=== PATIENT | male | born 1960 | race Caucasian/White ===

== ENCOUNTER 2021-02-06 15:23 | Emergency (ER) | payer SELFPAY ==
[2021-02-06 16:50] LABS: Basophils % 0.5 % (0-1.3); Hematocrit 35.3 % (39.6-49.0); Lymphocytes % 15.3 % (15.3-44.8); MPV 7.9 fL (7.6-11.3)
[2021-02-06 16:53] LABS: Protime INR 1.57
[2021-02-06 17:05] LABS: Urine Blood Negative (Negative); Urine Glucose Trace (Negative); Urine Protein 2+ (Negative); Urine Specific Gravity 1.025 (1.005-1.030)
[2021-02-06 17:05] LABS: Blood Morphology Comment NOTED (NOT SEEN); Macrocytosis 3+; Platelet Estimate ADEQ; White Blood Cell Scan OK (OK)
[2021-02-06 17:11] LABS: ALT/SGPT 54 U/L (12-78); Albumin 2.2 g/dL (3.4-5.0); Alkaline Phosphatase 243 U/L (45-117); BUN Blood Urea Nitrogen 12 mg/dL (7-18); Bicarbonate 20 mmol/L (21-32); Bilirubin Direct 6.9 mg/dL (0-0.2); Glucose Level 80 mg/dL (74-106); Lipase 101 U/L (73-393); NT PRO-BNP 1502 pg/mL (<125); Potassium 4.9 mmol/L (3.5-5.1); Protein, Total 6.8 g/dL (6.4-8.2); Sodium Level 132 mmol/L (136-145); Troponin (Emerg Dept Use Only) < 0.02 ng/mL (0.0-0.045)
[2021-02-06 17:12] LABS: AST/SGOT 232 U/L (15-37); Magnesium 2.3 mg/dL (1.8-2.4)
[2021-02-06 17:16] LABS: Bilirubin Total 10.7 mg/dL (0.2-1.0)
[2021-02-06] MEDS ORDERED: ONDANSETRON 4 MG/2 ML VIAL ONE ×2 (17:27→20:10)
[2021-02-06] MEDS ORDERED: THIAMINE 200 MG/2 ML INJ ONE ×2 (17:27→23:03)
[2021-02-06] MEDS ORDERED: VITAMIN K (ADULT) 10 MG/ML ONE (17:37)
[2021-02-06] MEDS ORDERED: NA CHLORIDE 0.9% 1,000 ML ONE ×2 (17:37→23:05)
[2021-02-06] MEDS ORDERED: PANTOPRAZOLE 40 MG INJ ONE ×3 (17:37→20:10)
[2021-02-06 17:43] LABS: Barbiturates NEGATIVE (NEGATIVE); Benzodiazepines NEGATIVE (NEGATIVE); Cocaine NEGATIVE (NEGATIVE); METHAMPHETAM NEGATIVE (NEGATIVE); Methadone NEGATIVE (NEGATIVE); Opiates NEGATIVE (NEGATIVE); Phencyclidine NEGATIVE (NEGATIVE); THC Cannibis POSITIVE (NEGATIVE)
[2021-02-06] MEDS ORDERED: VANCOMYCIN/NS 1 gm 1 GM/250 ML BAG IVPB ONE (18:00)
[2021-02-06] MEDS ORDERED: CEFTRIAXONE/SWI 1gm 1 GM/10 ML SYR IVP ONE (18:00)
[2021-02-06] MEDS ORDERED: METHYLPREDNISOLONE 125 MG INJ ONE (18:10)
--- NOTE | 2021-02-06 18:13 | RAD REPORT ---
EXAM DESCRIPTION: Ekaterina Single View02/06/2021 5:53 pm CLINICAL HISTORY: Cough COMPARISON: none FINDINGS: Right hemidiaphragm is elevated with areas of subsegmental atelectasis within the right l charlene base. The left lung appears clear of acute infiltrate. The heart is normal size
[2021-02-06] MEDS ORDERED: LIDOCAINE 1% MPF 30 ML VIAL ONE (18:38)
[2021-02-06] MEDS ORDERED: ALBUMIN HUMAN 25% 100 ML IV ONE (19:05)
--- NOTE | 2021-02-06 19:49 | EDPHYS ---
Physician Documentation [facility] Name: Rei Waldron Age: 60 yrs Sex: Male : 1960 Arrival Date: 02/06/2021 Time: 15:28 Bed 18 Private MD: ED Physician Eduardo Pablo HPI: 02/06 16:52 This 60 yrs old Male presents to ER via Wheelchair with complaints of rekha Abdominal Swelling, Cough, Leg Swelling. 16:52 The patient or guardian reports cough, difficulty breathing. Onset: The rekha symptoms/episode began/occurred last week. Historical: - Allergies: 15:41 No Known Allergies; em - PMHx: 15:41 None; em - PSHx: 15:41 Hernia repair; em - Immunization history:: Adult Immunizations not up to date. - Social history:: Smoking status: Patient/guardian denies using tobacco, Stopped _ months ago 1. ROS: 16:52 Constitutional: Negative for fever, chills, and weight loss, Eyes: Negative for injury, rekha pain, redness, and discharge, ENT: Negative for injury, pain, and discharge, Neck: Negative for injury, pain, and swelling, Back: Negative for injury and pain, : Negative for injury, bleeding, discharge, and swelling, Neuro: Negative for headache, weakness, numbness, tingling, and seizure, Psych: Negative for depression, anxiety, suicide ideation, homicidal ideation, and hallucinations, Allergy/Immunology: Negative for hives, rash, and allergies, Endocrine: Negative for neck swelling, polydipsia, polyuria, polyphagia, and marked weight changes, Hematologic/Lymphatic: Negative for swollen nodes, abnormal bleeding, and unusual bruising. 16:52 Cardiovascular: Positive for palpitations. 16:52 Respiratory: Positive for cough, shortness of breath. 16:52 Abdomen/GI: Positive for abdominal pain, abdominal distension, of the right upper quadrant, left upper quadrant, right lower quadrant and left lower quadrant. Exam: 16:52 Head/Face: Normocephalic, atraumatic. Eyes: Pupils equal round and reactive to light, rekha extra-ocular motions intact. Lids and lashes normal. Conjunctiva and sclera are non-icteric and not injected. Cornea within normal limits. Periorbital areas with no swelling, redness, or edema. ENT: Nares patent. No nasal discharge, no septal abnormalities noted. Tympanic membranes are normal and external auditory canals are clear. Oropharynx with no redness, swelling, or masses, exudates, or evidence of obstruction, uvula midline. Mucous membranes moist. Neck: Trachea midline, no thyromegaly or masses palpated, and no cervical lymphadenopathy. Supple, full range of motion without nuchal rigidity, or vertebral point tenderness. No Meningismus. Chest/axilla: Normal chest wall appearance and motion. Nontender with no deformity. No lesions are appreciated. Back: No spinal tenderness. No costovertebral tenderness. Full range of motion. Male : Normal genitalia with no discharge or lesions. Skin: Warm, dry with normal turgor. Normal color with no rashes, no lesions, and no evidence of cellulitis. Neuro: Awake and alert, GCS 15, oriented to person, place, time, and situation. Cranial nerves II-XII grossly intact. Motor strength 5/5 in all extremities. Sensory grossly intact. Cerebellar exam normal. Normal gait. Psych: Awake, alert, with orientation to person, place and time. Behavior, mood, and affect are within normal limits. 16:52 Constitutional: The patient appears anxious, in obvious distress, mildly distressed. 16:52 Cardiovascular: Rate: tachycardic, Rhythm: regular, Heart sounds: normal, Edema: 4+ edema to level of left midcalf and right midcalf, JVD: is noted bilaterally, to 2 cm. 16:52 Respiratory: mild respiratory distress is noted, Respirations: labored breathing, that is mild, Breath sounds: bronchial sounds, decreased breath sounds, rhonchi, that are mild, Respiratory rate: 24 16:52 Abdomen/GI: Inspection: distension, that is severe, Bowel sounds: normal, Palpation: mild abdominal tenderness, in all quadrants, Liver: no appreciated palpable abnormalities, Hernia: not appreciated. Vital Signs: 15:37 BP 155 / 94; Pulse 115; Resp 24; Temp 97.8(O); Pulse Ox 94% on R/A; Weight 108.86 kg; em Height 6 ft. 2 in. (187.96 cm) (R); Pain 8/10; 19:20 BP 148 / 121; Pulse 109; Resp 22; Pulse Ox 100% on BiPAP; tr6 19:39 Temp 97.7(R); tr6 20:17 BP 135 / 74; Pulse 107; Resp 22; Pulse Ox 100% on BiPAP; jm8 21:00 BP 135 / 88; Pulse 105; Resp 20; Pulse Ox 99% on BiPAP; jm8 22:00 BP 112 / 65; Pulse 107; Resp 16; Pulse Ox 95% on 3 lpm NC; jm8 23:00 BP 102 / 78; Pulse 128; Resp 16; Pulse Ox 93% on 3 lpm NC; jm8 23:50 BP 73 / 44; Pulse 127; Resp 20; Pulse Ox 99% on 4 lpm NC; 8 02/07 00:11 BP 94 / 53; Pulse 122; Resp 20; Pulse Ox 94% on 4 lpm NC; [facility] 02/06 15:37 Body Mass Index 30.81 (108.86 kg, 187.96 cm) em Procedures: 02/06 21:28 Paracentesis: The risks and benefits of the procedure were discussed with the patient rekha or guardian in detail, aseptic technique was employed throughout the procedure, the catheter was placed in the right lower quadrant, appoximately 10 liters of fluid was removed, the fluid was serous, the patient tolerated the procedure well, the patient did not experience any apparent complications. MDM: 15:52 Patient medically screened. rekha 16:56 Differential diagnosis: Anemia Bronchitis CHF exacerbation, Chronic Obstructive rekha Pulmonary Disease pneumonia, pulmonary edema, reactive airway disease, cholecystitis, Cholelithiasis, pancreatitis, urinary tract infection. Antibiotic administration: rocephin. The patient's Wells Deep Vein Thrombosis Score was calculated as follows: Heart Rate >100 BPM (1.5 Pts) Total Score: 0-2 Pts- Low Risk. Differential Diagnosis: Bronchitis Influenza Sinusitis Asthma Exacerbation Viral Syndrome Pneumonia. The patient's pulmonary embolism risk score was calculated as follows: the patients heart rate is greater than 100 beats per minute (1.5 Pts) Total Score: 0-2 points. This patient was found to be at low risk for a pulmonary embolism by using the Well's assessment criteria. Immunization status: Influenza vaccine: Not up to date. Data reviewed: vital signs, nurses notes, lab test result(s), EKG, radiologic studies, CT scan, plain films. Data interpreted: environmental monitoring specialist: rate is 115 beats/min, rhythm is regular, Pulse oximetry: on room air is 94 %. Test interpretation: by ED physician or midlevel provider: ECG, plain radiologic studies. 02/07 01:35 ED course: Pt being transferred by Dr. Pablo to another facility for liver failure rn and ascites, notified upon EMS arrival that patient's BP, which had previously been stable, dropped, ordered another 500cc bolus in addition to 25g albumin, with improvement of BP. Plan expressed to nurse and EMS was that we continue to watch here until BP stabilizes, I left area to see other patient's, and upon my return nurse states EMS didn't want to wait anymore, took patient and had left ER. . 02/06 15:57 Order name: Basic Metabolic Panel [facility] 02/06 15:57 Order name: CBC with Diff [facility] 02/06 15:57 Order name: LFT's [facility] 02/06 15:57 Order name: Magnesium [facility] 02/06 15:57 Order name: NT PRO-BNP [facility] 02/06 15:57 Order name: PT-INR [facility] 02/06 15:57 Order name: Troponin (emerg Dept Use Only) [facility] 02/06 15:57 Order name: Lipase [facility] 02/06 15:57 Order name: AMMONIA [facility] 02/06 15:57 Order name: Urine Culture [facility] 02/06 15:57 Order name: Asprin; Complete Time: 18:18 [facility] 02/06 15:57 Order name: Tylenol Level; Complete Time: 17:17 [facility] 02/06 15:57 Order name: Alcohol Level; Complete Time: 17:08 [facility] 02/06 15:57 Order name: Type And Screen; Complete Time: 18:18 [facility] 02/06 15:57 Order name: Ptt, Activated; Complete Time: 17:02 [facility] 02/06 15:57 Order name: Blood Culture Adult (2) [facility] 02/06 15:57 Order name: Lactate; Complete Time: 17:17 [facility] 02/06 15:57 Order name: Basic Metabolic Panel; Complete Time: 17:17 [facility] 02/06 15:57 Order name: CBC with Automated Diff; Complete Time: 17:08 [facility] 02/06 15:57 Order name: Liver (Hepatic) Function; Complete Time: 17:17 [facility] 02/06 15:57 Order name: Magnesium; Complete Time: 17:17 [facility] 02/06 15:57 Order name: NT PRO-BNP; Complete Time: 17:17 [facility] 02/06 15:57 Order name: Protime (+INR); Complete Time: 17:02 [facility] 02/06 15:57 Order name: Troponin (Emerg Dept Use Only); Complete Time: 17:17 [facility] 02/06 15:57 Order name: Lipase; Complete Time: 17:17 [facility] 02/06 15:57 Order name: Ammonia; Complete Time: 17:02 [facility] 02/06 17:05 Order name: CBC Smear Scan; Complete Time: 17:08 [facility] 02/06 17:05 Order name: Urine Dipstick-Ancillary; Complete Time: 17:08 [facility] 02/06 17:07 Order name: UDS; Complete Time: 18:18 [facility] 02/06 17:39 Order name: ABO/RH no charge; Complete Time: 18:18 [facility] 02/06 15:57 Order name: XRAY Chest (1 view); Complete Time: 18:18 [facility] 02/06 16:49 Order name: BIPAP [facility] 02/06 20:12 Order name: Body Fluid Culture [facility] 02/06 20:12 Order name: Body Fluid Cell Count; Complete Time: 22:13 [facility] 02/06 20:13 Order name: Miscellaneous Test Lab [facility] 02/06 20:17 Order name: Miscellaneous Test Lab [facility] 02/06 20:17 Order name: Miscellaneous Test Lab [facility] 02/06 20:39 Order name: Lactate Sepsis 2 HR Follow-up; Complete Time: 20:42 [facility] 02/06 20:41 Order name: Lactate 2 02/06 20:50 Order name: SARS-COV-2 RT PCR; Complete Time: 21:32 [facility] 02/06 21:42 Order name: US Extremity Venous W Compression Delta [facility] 02/06 15:57 Order name: EKG; Complete Time: 15:58 [facility] 02/06 15:57 Order name: Cardiac monitoring; Complete Time: 17:46 [facility] 02/06 15:57 Order name: EKG - Nurse/Tech [facility] 02/06 15:57 Order name: IV Saline Lock; Complete Time: 17:46 [facility] 02/06 15:57 Order name: Labs collected and sent; Complete Time: 17:46 [facility] 02/06 15:57 Order name: O2 Per Protocol; Complete Time: 17:47 [facility] 02/06 15:57 Order name: O2 Sat Monitoring; Complete Time: 17:47 [facility] 02/06 15:57 Order name: Urine Dipstick-Ancillary (obtain specimen); Complete Time: 17:06 [facility] 02/06 15:57 Order name: Brown; Complete Time: 17:06 [facility] 02/06 16:50 Order name: IV Saline Lock - Large Bore; Complete Time: 17:47 [facility] 02/06 16:51 Order name: Misc. Order: paracentesis set up; Complete Time: 19:00 [facility] 02/06 19:44 Order name: IV Saline Lock - Large Bore [facility] 02/06 21:37 Order name: NPO; Complete Time: 21:43 rekha Administered Medications: 02/06 17:45 Drug: Vitamin K1 (phytonadione) 10 mg Route: Sub-Q; Site: right upper abdomen; tr6 17:45 Drug: Zofran (Ondansetron) 4 mg Route: IVP; Site: right antecubital; tr6 19:29 Follow up: Response: No adverse reaction; Nausea is decreased tr6 17:46 Drug: NS 0.9% 1000 ml Route: IV; Rate: 75 ml/hr; Site: right antecubital; tr6 17:46 Drug: ProTONIX (pantoprazole) 40 mg Route: IVP; Site: right antecubital; tr6 20:15 Follow up: Response: No adverse reaction jm8 17:46 Drug: Thiamine 100 mg Route: IV; Rate: bolus; Site: right antecubital; tr6 20:15 Follow up: Response: No adverse reaction jm8 18:59 Drug: Albumin 25 grams Volume: 100 ml; Route: IVPB; Site: left antecubital; tr6 20:14 Follow up: IV Status: Completed infusion jm8 19:00 Drug: SOLU-Medrol (methylPrednisoLONE) 125 mg Route: IVP; Site: right antecubital; tr6 20:14 Follow up: Response: No adverse reaction jm8 19:24 Drug: vancoMYCIN 1 grams Route: IVPB; Infused Over: 2 hrs; Site: right antecubital; tr6 19:55 Drug: ProTONIX (pantoprazole) 40 mg Route: IVP; Site: left antecubital; jm8 20:13 Follow up: Response: No adverse reaction jm8 19:55 Drug: ProTONIX (pantoprazole) 8 mg/hr Route: IV; Rate: 25 ml/hr; Site: left antecubital;jm8 19:55 Drug: morphine 2 mg Route: IVP; Site: left antecubital; jm8 20:13 Follow up: Response: No adverse reaction; Pain is decreased jm8 19:55 Drug: Zofran (Ondansetron) 4 mg Route: IVP; Site: left antecubital; jm8 20:13 Follow up: Response: No adverse reaction; Nausea is decreased jm8 20:15 Drug: Rocephin (cefTRIAXone) 1 grams Route: IV; Rate: per protocol; Site: right hand; jm8 20:38 Drug: SandoSTATIN (octreotide) 50 mcg Route: IV; Rate: calculated rate; Site: right 8 antecubital; 21:37 Drug: NS 0.9% 500 ml Route: IV; Rate: bolus; Site: right antecubital; jm8 23:16 Follow up: IV Status: Completed infusion jm8 21:38 Not Given (not given by dayshift): Xopenex (levalbuterol) 3.75 mg Inhalation once jm8 21:38 Drug: SandoSTATIN (octreotide) 25 mcg/h Route: IV; Rate: calculated rate; Site: right 8 antecubital; 21:39 Not Given (not given by dayshift): AtroVENT (ipratropium) Aerosol 0.5 mg Inhalation oncejm8 21:58 Drug: morphine 2 mg Route: IVP; Site: right antecubital; jm8 22:04 Follow up: Response: No adverse reaction; Pain is decreased jm8 21:58 Drug: Xopenex (levalbuterol) 1.25 mg Route: Inhalation; jm8 22:05 Follow up: Response: No adverse reaction jm8 21:59 Drug: NS 0.9% 500 ml Route: IV; Rate: bolus; Site: right antecubital; jm8 23:16 Follow up: IV Status: Completed infusion jm8 22:00 Drug: Ativan (LORazepam) 1 mg Route: IVP; Site: right antecubital; jm8 22:04 Follow up: Response: No adverse reaction jm8 22:57 Drug: Banana Bag - (NS 0.9% 1000 ml, foLIC Acid 1 mg, Thiamine 100 mg, Multivitamin 1 jm8 amp) Route: IV; Rate: 100 ml/hr; Site: left antecubital; 22:58 Drug: Thiamine 100 mg Route: IV; Rate: bolus; Site: right antecubital; 8 23:02 Follow up: Response: No adverse reaction 23:17 Follow up: IV Status: Completed infusion 23:01 Drug: foLIC Acid 1 mg Route: IVPB; Site: right antecubital; jm8 23:02 Follow up: Response: No adverse reaction 23:16 Follow up: IV Status: Completed infusion 23:15 Not Given (Other Intervention Used): Dilaudid (HYDROmorphone) 0.5 mg IVP once; RASS on ADMIN: Combtv4, Very Agttd3, Agttd2, Rstlss1, AlertClm0, Drwsy-1, Lt Sdtn-2, Mod Sdtn-3, Dp Sdtn-4, UnArsble-5 23:16 Not Given (Patient transfered): Ativan (LORazepam) 1 mg IVP once; if needed 23:55 Drug: Albumin 25 grams Volume: 100 ml; Route: IVPB; Site: left antecubital; 8 23:56 Drug: NS 0.9% 500 ml Route: IV; Rate: bolus; Site: left antecubital; jm8 02/07 00:07 Follow up: Response: No adverse reaction 00:08 Drug: NS 0.9% 500 ml Route: IV; Rate: bolus; Site: left antecubital; jm8 Disposition: 02/06 21:30 Critical Care:. [facility] Disposition: 02/06/21 19:[address] [facility]. Diagnosis are Ascites, Alcohol abuse, Alcoholic cirrhosis of liver, Alcoholic cirrhosis of liver with ascites - LIVER FAILURE, Gastrointestinal hemorrhage, unspecified - UPPER, Anemia, unspecified - megloblastic anemia, Tobacco abuse counseling, Tobacco use. - Reason for transfer: Higher level of care. - Accepting physician is to [facility], [facility]. - Condition is Fair. - Problem is new. - Symptoms have improved. Critical care time excluding procedures: 21:30 Critical care time: Bedside Care: 75 minutes, Consultation: 20 minutes, Family [facility] Intervention: 20 minutes. Total time: 115 minutes Signatures: Dispatcher [employer] EDMS Eduardo Pablo MD MD cha Munoz, Edgar, RN RN Rocco Dawn MD MD rn Eulalio Hines, MANAGEMENT SME-C MANAGEMENT SME-Cla1 [place] Abebe RN RN [id number] Amelia Regalado, TESSA RN tr6 Corrections: (The following items were deleted from the chart) 20:08 19:51 CORONAVIRUS+MR.LAB.BRZ ordered. EDCT EDMS 20:17 20:15 Miscellaneous Test Lab ordered. EDCT EDMS 22:01 19:48 02/06/2021 19:[address] [facility]. [facility] Diagnosis is Ascites; Alcohol abuse; Alcoholic cirrhosis of liver; Alcoholic cirrhosis of liver with ascites - LIVER FAILURE; Gastrointestinal hemorrhage, unspecified - UPPER. Reason for transfer: Higher level of care. Accepting physician is to [facility]. Condition is Fair. Problem is new. Symptoms have improved. [facility] 02/07 00:14 02/06 22:01 02/06/2021 19:[address] [facility]. jmCris Diagnosis is Ascites; Alcohol abuse; Alcoholic cirrhosis of liver; Alcoholic cirrhosis of liver with ascites - LIVER FAILURE; Gastrointestinal hemorrhage, unspecified - UPPER; Anemia, unspecified - megloblastic anemia; Tobacco abuse counseling; Tobacco use. Reason for transfer: Higher level of care. Accepting physician is to [facility]. Condition is Fair. Problem is new. Symptoms have improved. rekha
--- NOTE | 2021-02-06 19:49 | ER ---
Nurse's Notes [facility] Name: Rei Waldron Age: 60 yrs Sex: Male : 1960 Arrival Date: 02/06/2021 Time: 15:28 Bed 18 Private MD: Diagnosis: Ascites;Alcohol abuse;Alcoholic cirrhosis of liver;Alcoholic cirrhosis of liver with ascites-LIVER FAILURE;Gastrointestinal hemorrhage, unspecified-UPPER;Anemia, unspecified-megloblastic anemia;Tobacco abuse counseling;Tobacco use Presentation: 02/06 15:37 Chief complaint: Patient states: abdominal swelling and leg swelling that started 1-2 em months ago, reports nausea and some vomiting, denies fever. Coronavirus screen: Client denies travel out of the [place] in the last 14 days. Ebola Screen: Patient negative for fever greater than or equal to 101.5 degrees Fahrenheit, and additional compatible Ebola Virus Disease symptoms Patient denies exposure to infectious person. Patient denies travel to an Ebola-affected area in the 21 days before illness onset. No symptoms or risks identified at this time. Initial Sepsis Screen: Does the patient meet any 2 criteria? No. Patient's initial sepsis screen is negative. Does the patient have a suspected source of infection? No. Patient's initial sepsis screen is negative. Risk Assessment: Do you want to hurt yourself or someone else? Patient reports no desire to harm self or others. Onset of symptoms was February 06, 2021. 15:37 Method Of Arrival: Wheelchair em 15:37 Acuity: MENDY 2 em Historical: - Allergies: 15:41 No Known Allergies; em - PMHx: 15:41 None; em - PSHx: 15:41 Hernia repair; em - Immunization history:: Adult Immunizations not up to date. - Social history:: Smoking status: Patient/guardian denies using tobacco, Stopped _ months ago 1. Screenin:16 Abuse screen: Denies threats or abuse. Denies injuries from another. Nutritional jm8 screening: No deficits noted. Tuberculosis screening: No symptoms or risk factors identified. Fall Risk None identified. IV access (20 points). Assessment: 17:58 General: Appears distressed, uncomfortable, obese, unkempt, Behavior is cooperative, tr6 anxious, Smells of foul. Pain: Complains of pain in pt c/o b/l groin burning sensation and extreme diffuse abdominal pain for about a month. Neuro: No deficits noted. Cardiovascular: Denies chest pain, Rhythm is sinus tachycardia. Respiratory: Airway is patent Trachea midline Respiratory effort is even, labored, Patient placed on BiPAP: Breath sounds are coarse Breath sounds with crackles bilaterally. Breath sounds with rhonchi Breath sounds with wheezes bilaterally. GI: extreme, diffuse abdominal ascites. abdomen is taut and unable to hear bowel sounds Abd is rigid X 4 quads. Reports distended abdomen and difficulty breathing worsening over the past month. pt states this is the worst it has been. : Brown in place. EENT: Sclera/Cornea yellow. Derm: Skin is fragile, Skin is jaundiced, Skin temperature is warm. Derm: +3 pitting edema on b/l lower extremities, +3 pitting edema on pts lower abdomen, +3 pitting edema b/l hands. Musculoskeletal: limited movement due to swelling of b/l legs and abdomen. 18:10 Reassessment: MD Pablo at bedside to perform a paracentesis. tr6 20:00 Reassessment: Patient appears in no apparent distress at this time. Patient and/or 8 family updated on plan of care and expected duration. Pain level reassessed. Patient is alert, oriented x 3, equal unlabored respirations, skin warm/dry/pink. Patient states feeling better. Patient states symptoms have improved. 21:00 Reassessment: Patient appears in no apparent distress at this time. No changes from [facility] previously documented assessment. Patient and/or family updated on plan of care and expected duration. Pain level reassessed. Patient is alert, oriented x 3, equal unlabored respirations, skin warm/dry/pink. Patient states feeling better. Patient states symptoms have improved. 22:00 Reassessment: Patient appears in no apparent distress at this time. Patient and/or jm8 family updated on plan of care and expected duration. Pain level reassessed. Patient is alert, oriented x 3, equal unlabored respirations, skin warm/dry/pink. Patient states feeling better. Vital Signs: 15:37 BP 155 / 94; Pulse 115; Resp 24; Temp 97.8(O); Pulse Ox 94% on R/A; Weight 108.86 kg; em Height 6 ft. 2 in. (187.96 cm) (R); Pain 8/10; 19:20 BP 148 / 121; Pulse 109; Resp 22; Pulse Ox 100% on BiPAP; tr6 19:39 Temp 97.7(R); tr6 20:17 BP 135 / 74; Pulse 107; Resp 22; Pulse Ox 100% on BiPAP; jm8 21:00 BP 135 / 88; Pulse 105; Resp 20; Pulse Ox 99% on BiPAP; jm8 22:00 BP 112 / 65; Pulse 107; Resp 16; Pulse Ox 95% on 3 lpm NC; jm8 23:00 BP 102 / 78; Pulse 128; Resp 16; Pulse Ox 93% on 3 lpm NC; jm8 23:50 BP 73 / 44; Pulse 127; Resp 20; Pulse Ox 99% on 4 lpm NC; 8 02/07 00:11 BP 94 / 53; Pulse 122; Resp 20; Pulse Ox 94% on 4 lpm NC; 8 02/06 15:37 Body Mass Index 30.81 (108.86 kg, 187.96 cm) em ED Course: 02/06 15:28 Patient arrived in ED. mr 15:41 Triage completed. em 15:41 Arm band placed on. em 15:52 Eduardo Pablo MD is Attending Physician. rekha 15:54 Amelia Regalado, RN is Primary Nurse. tr6 17:45 BIPAP Sent. tr6 17:53 XRAY Chest (1 view) In Process Unspecified. EDMS 19:22 Assist provider with paracentesis which returned 2200 ml's. yellow, clear, fluid tr6 drained. Performed by Eduardo Pablo MD Patient tolerated well. 19:47 initiated a transfer with Celia from [facility]. mw2 20:16 Patient has correct armband on for positive identification. Call light in reach. Side jm8 rails up X2. Adult w/ patient. 20:35 doc [address] doc with Dr. Molina from [facility]. mw2 20:45 initiated a transfer with Candice from [facility]. mw2 20:58 [facility] denied due to capacity. mw2 21:20 doc to doc with the GI specialist from [facility]. mw2 21:31 doc to doc with the Hospitalist from [facility]. mw2 21:[address] Pablo with removal of paracentesis. Total of 10 L of yellow, clear, jm8 fluid drained. Patient tolerated well.. 21:37 administrative approval given by Candice Fall/ patient has been accepted to 2 [facility] bed 7M/ Dr. Dixon accepted the patient in transfer/ report to be called to [phone]. 22:07 US Extremity Venous W Compression Delta In Process Unspecified. EDMS 22:18 Report given to Vianey at [facility] 7M. jm8 02/07 00:13 Patient transferred, IV remains in place. jm8 Administered Medications: 02/06 17:45 Drug: Vitamin K1 (phytonadione) 10 mg Route: Sub-Q; Site: right upper abdomen; tr6 17:45 Drug: Zofran (Ondansetron) 4 mg Route: IVP; Site: right antecubital; tr6 19:29 Follow up: Response: No adverse reaction; Nausea is decreased tr6 17:46 Drug: NS 0.9% 1000 ml Route: IV; Rate: 75 ml/hr; Site: right antecubital; tr6 17:46 Drug: ProTONIX (pantoprazole) 40 mg Route: IVP; Site: right antecubital; tr6 20:15 Follow up: Response: No adverse reaction jm8 17:46 Drug: Thiamine 100 mg Route: IV; Rate: bolus; Site: right antecubital; tr6 20:15 Follow up: Response: No adverse reaction jm8 18:59 Drug: Albumin 25 grams Volume: 100 ml; Route: IVPB; Site: left antecubital; tr6 20:14 Follow up: IV Status: Completed infusion jm8 19:00 Drug: SOLU-Medrol (methylPrednisoLONE) 125 mg Route: IVP; Site: right antecubital; tr6 20:14 Follow up: Response: No adverse reaction jm8 19:24 Drug: vancoMYCIN 1 grams Route: IVPB; Infused Over: 2 hrs; Site: right antecubital; tr6 19:55 Drug: ProTONIX (pantoprazole) 40 mg Route: IVP; Site: left antecubital; jm8 20:13 Follow up: Response: No adverse reaction 8 19:55 Drug: ProTONIX (pantoprazole) 8 mg/hr Route: IV; Rate: 25 ml/hr; Site: left antecubital;jm8 19:55 Drug: morphine 2 mg Route: IVP; Site: left antecubital; jm8 20:13 Follow up: Response: No adverse reaction; Pain is decreased jm8 19:55 Drug: Zofran (Ondansetron) 4 mg Route: IVP; Site: left antecubital; jm8 20:13 Follow up: Response: No adverse reaction; Nausea is decreased jm8 20:15 Drug: Rocephin (cefTRIAXone) 1 grams Route: IV; Rate: per protocol; Site: right hand; jm8 20:38 Drug: SandoSTATIN (octreotide) 50 mcg Route: IV; Rate: calculated rate; Site: right 8 antecubital; 21:37 Drug: NS 0.9% 500 ml Route: IV; Rate: bolus; Site: right antecubital; jm8 23:16 Follow up: IV Status: Completed infusion jm8 21:38 Not Given (not given by dayshift): Xopenex (levalbuterol) 3.75 mg Inhalation once jm8 21:38 Drug: SandoSTATIN (octreotide) 25 mcg/h Route: IV; Rate: calculated rate; Site: right 8 antecubital; 21:39 Not Given (not given by dayshift): AtroVENT (ipratropium) Aerosol 0.5 mg Inhalation oncejm8 21:58 Drug: morphine 2 mg Route: IVP; Site: right antecubital; jm8 22:04 Follow up: Response: No adverse reaction; Pain is decreased jm8 21:58 Drug: Xopenex (levalbuterol) 1.25 mg Route: Inhalation; jm8 22:05 Follow up: Response: No adverse reaction jm8 21:59 Drug: NS 0.9% 500 ml Route: IV; Rate: bolus; Site: right antecubital; jm8 23:16 Follow up: IV Status: Completed infusion jm8 22:00 Drug: Ativan (LORazepam) 1 mg Route: IVP; Site: right antecubital; jm8 22:04 Follow up: Response: No adverse reaction jm8 22:57 Drug: Banana Bag - (NS 0.9% 1000 ml, foLIC Acid 1 mg, Thiamine 100 mg, Multivitamin 1 jm8 amp) Route: IV; Rate: 100 ml/hr; Site: left antecubital; 22:58 Drug: Thiamine 100 mg Route: IV; Rate: bolus; Site: right antecubital; jm8 23:02 Follow up: Response: No adverse reaction 23:17 Follow up: IV Status: Completed infusion 8 23:01 Drug: foLIC Acid 1 mg Route: IVPB; Site: right antecubital; jm8 23:02 Follow up: Response: No adverse reaction 8 23:16 Follow up: IV Status: Completed infusion 8 23:15 Not Given (Other Intervention Used): Dilaudid (HYDROmorphone) 0.5 mg IVP once; RASS on ADMIN: Combtv4, Very Agttd3, Agttd2, Rstlss1, AlertClm0, Drwsy-1, Lt Sdtn-2, Mod Sdtn-3, Dp Sdtn-4, UnArsble-5 23:16 Not Given (Patient transfered): Ativan (LORazepam) 1 mg IVP once; if needed 8 23:55 Drug: Albumin 25 grams Volume: 100 ml; Route: IVPB; Site: left antecubital; jm8 23:56 Drug: NS 0.9% 500 ml Route: IV; Rate: bolus; Site: left antecubital; 8 02/07 00:07 Follow up: Response: No adverse reaction 8 00:08 Drug: NS 0.9% 500 ml Route: IV; Rate: bolus; Site: left antecubital; jm8 Outcome: 02/06 19:48 ER care complete, transfer ordered by MD. da silva 02/07 00:13 Transferred by ground EMS to [facility]. jm8 Condition: stable Instructed on the need for transfer. 00:14 Patient left the ED. jm8 Signatures: Dispatcher [employer] Eduardo Ruano MD MD cha Rivera, Mary mr Munoz, Edgar, RN Mayo Vallejo [facility] [place] Abebe RN RN Amelia Gaspar RN RN tr6 Corrections: (The following items were deleted from the chart) 02/06 21:21 21:20 doc to doc with the GI specialist from [place] [id number] 21:37 20:17 BP 135 / 74; Pulse 107bpm; Resp 16bpm; Pulse Ox 100% BiPAP; jm8 jm8
[2021-02-06] MEDS ORDERED: MORPHINE 2 MG/ML SYR ONE ×2 (20:09→22:07)
[2021-02-06] MEDS ORDERED: NA CHLORIDE 0.9% 250 ML ONE (20:10)
[2021-02-06] MEDS ORDERED: OCTREOTIDE ACETATE 100 MCG/ML ONE (20:44)
[2021-02-06] MEDS ORDERED: OCTREOTIDE ACETATE 500 MCG/ML ONE (21:07)
[2021-02-06] MEDS ORDERED: NA CHLORIDE 0.9% 500 ML ONE ×3 (21:19→22:07)
[2021-02-06] MEDS ORDERED: LORazepam 2 MG/ML VIAL ONE (22:06)
[2021-02-06] MEDS ORDERED: LEVALBUTEROL 1.25 MG/3 ML NEB ONE (22:07)
[2021-02-06 22:08] LABS: Appearance SLT. TURBID (CLEAR); Body Fluid Source PERITONEAL; Body Fluid WBC 90 /mm^3; Color of fluid Yellow (COLORLESS)
[2021-02-06] MEDS ORDERED: MULTIVITAMINS 10 ML VIAL (INJ) IV ONE (23:03)
[2021-02-06] MEDS ORDERED: FOLIC ACID 5 MG/ML VIAL ONE (23:05)
[2021-02-07] MEDS ORDERED: ALBUMIN HUMAN 25% 50 ML IV ONE (00:03)
[2021-02-07] MEDS ORDERED: NA CHLORIDE 0.9% 500 ML ONE ×2 (00:04→00:23)
[2021-02-07 00:22] VITALS: TEMP 97.7
[2021-02-07 00:31] VITALS: BP 94/53; O2SAT 94
--- NOTE | 2021-02-07 07:30 | RAD REPORT ---
EXAM DESCRIPTION: US - Extrem Venous W Compress Delta - 02/06/2021 10:08 pm CLINICAL HISTORY: Pain;Swelling Preliminary findings provided at the time of the study. COMPARISON: None. TECHNIQUE: Real-time sonographic evaluation of the bilateral lower extremity common femoral, superfi cial femoral, popliteal and posterior tibial veins was performed. FINDINGS: Normal compressibility, flow augmentation, phasic flow and spontaneous flow are identified in the left and right lower extremity common femoral, superficial femoral, popliteal and posterior t ibial veins. No intraluminal filling defects seen. IMPRESSION: No DVT in either lower extremity.
== END 2021-02-07 00:14 | disposition short-term general hospital (02) ==
LOC: ER 15:23
PROC: 0W9G3ZX Drainage of Peritoneal Cavity, Percutaneous Approach, Diagnostic (ICD-10-PCS; principal; 2021-02-07)
DX: K70.40 Alcoholic hepatic failure without coma (principal); F10.10 Alcohol abuse, uncomplicated; K92.2 Gastrointestinal hemorrhage, unspecified; D53.1 Other megaloblastic anemias, not elsewhere classified; Z71.6 Tobacco abuse counseling; Z72.0 Tobacco use; Z20.822 Contact with and (suspected) exposure to COVID-19
CPT/HCPCS: 36415; 71045; 80048; 80076; 80307; 80320; 80329; 81003; 82140; 83605; 83690; 83735; 83880; 84484; 85025; 85610; 85730; 86850; 86900; 86901; 87040; 87070; 87086; 87088; 87205; 89050; 93970; 94660; 96372; 99285; C9113; J2270; J2354; J2405; J2930; J3370; J3411; J3430; J7030; J7040; J7050; P9047; U0003